=== PATIENT | female | born 1980 | race Caucasian/White ===

== ENCOUNTER → 2017-09-03 | Outpatient (CLI) | payer BC ==
[2016-04-30 11:58] VITALS: BMI 44.8
[~2017-09-03] MED LIST: ALBU8.5H IH; Benzocaine 60 ML TP; DOCU240C67 PO; HYDR-6018 PR; IBUP800T37 PO; LOR5/325 PO; Lanolin TP; OMEG1CAP99 PO; OMEP-218 PO; PREN-127 PO; TUCKS TP
== END ==
LOC: LAB 08:07
PROVIDERS: ATTEND Obstetrics & Gynecology Gynecology
DX: Z32.00 Encounter for pregnancy test, result unknown (principal)
CPT/HCPCS: 36415; 82670; 84144; 84702

== ENCOUNTER → 2017-09-05 | Outpatient (CLI) | payer BC ==
[2016-04-30 11:58] VITALS: BMI 44.8
== END ==
LOC: LAB 08:22
PROVIDERS: ATTEND Physician Assistant
DX: Z32.01 Encounter for pregnancy test, result positive (principal); O09.811 Supervision of pregnancy resulting from assisted reproductive technology, first trimester
CPT/HCPCS: 36415; 84702

== ENCOUNTER → 2017-09-07 | Outpatient (CLI) | payer BC ==
[2016-04-30 11:58] VITALS: BMI 44.8
== END ==
LOC: LAB 08:11
PROVIDERS: ATTEND Physician Assistant
DX: Z32.01 Encounter for pregnancy test, result positive (principal); O09.811 Supervision of pregnancy resulting from assisted reproductive technology, first trimester
CPT/HCPCS: 36415; 84702

== ENCOUNTER → 2017-10-10 | Outpatient (CLI) | payer BC ==
[2016-04-30 11:58] VITALS: BMI 44.8
[~2017-10-10] MED LIST changes: +ASPI-760 PO; +CETI10CA8 PO; +ESTR1PAT4 TD; +FLUT16SP19 NS; +PROG50VI4 IM
[2017-10-10 12:10] LABS: PLATELET COUNT, AUTOMATED 220 K/uL (150-450)
== END ==
LOC: LAB 11:41
PROVIDERS: ATTEND Obstetrics & Gynecology
DX: Z34.91 Encounter for supervision of normal pregnancy, unspecified, first trimester (principal); O09.529 Supervision of elderly multigravida, unspecified trimester
CPT/HCPCS: 36415; 85025; 86592; 86762; 86850; 86900; 86901; 87088; 87340

== ENCOUNTER → 2017-11-04 | Outpatient (CLI) | payer BC ==
[2016-04-30 11:58] VITALS: BMI 44.8
== END ==
LOC: LAB 11:18
PROVIDERS: ATTEND Obstetrics & Gynecology
DX: O09.92 Supervision of high risk pregnancy, unspecified, second trimester (principal); Z87.59 Personal history of other complications of pregnancy, childbirth and the puerperium
CPT/HCPCS: 36415; 82040; 82247; 82310; 82374; 82435; 82565; 82570; 82947; 83615; 84075; 84132; 84155; 84156; 84295; 84450; 84460; 84520

== ENCOUNTER → 2017-11-04 | Outpatient (CLI) | payer BC ==
[2016-04-30 11:58] VITALS: BMI 44.8
== END ==
LOC: RAD 10:30
PROVIDERS: ATTEND Obstetrics & Gynecology
DX: Z02.9 Encounter for administrative examinations, unspecified (principal)

== ENCOUNTER → 2017-11-10 | Outpatient (CLI) | payer BC ==
[2016-04-30 11:58] VITALS: BMI 44.8
[~2017-11-10] MED LIST changes: +AZIT-1 PO
== END ==
LOC: LAB 08:19
PROVIDERS: ATTEND Obstetrics & Gynecology
DX: O09.92 Supervision of high risk pregnancy, unspecified, second trimester (principal); Z87.59 Personal history of other complications of pregnancy, childbirth and the puerperium
CPT/HCPCS: 84156

== ENCOUNTER → 2017-12-06 | Outpatient (CLI) | payer BC ==
[2016-04-30 11:58] VITALS: BMI 44.8
== END ==
LOC: LAB 13:30
PROVIDERS: ATTEND Obstetrics & Gynecology
DX: O09.519 Supervision of elderly primigravida, unspecified trimester (principal)
CPT/HCPCS: 36415; 82105

== ENCOUNTER → 2018-01-05 | Outpatient (CLI) | payer BC ==
[2016-04-30 11:58] VITALS: BMI 44.8
--- NOTE | 2018-01-05 15:19 | RADIOLOGY IMAGING REPORT ---
FACILITY: [facility] - [place] PATIENT NAME: Parul Groves : 1980 MR: [id number] V: [id number] EXAM DATE: ORDERING PHYSICIAN: SHAAN DONIS TECHNOLOGIST: Location: [facility] Patient: Parul Groves : 1980 Visit/Account:[id number] Date of Sevice: 01/05/2018 Obstetric ultrasound HISTORY: . LMP: 08/04/2017 Gestational age based on LMP: 22 weeks, 0 days COMPARISON: 04/29/2016. FINDINGS: Standard transabdominal obstetric ultrasound. Uterus, cervix, and adnexa: Closed cervix measuring 4.5 cm. Placenta: Unremarkable anterior placenta. anatomic survey: No evidence of a midline fascial anomaly. No hydrocephalus. Fluid is seen in t he stomach and bladder. No hydronephrosis. Four-chamber heart. Three-vessel cord. All 4 limbs are see n. The spine and sacrum are not well seen. Parameters: Biparietal diameter: 5.3 cm, 22 weeks, 2 days Head circumference: 20.5 cm, 22 weeks, 5 days Abdominal circumference: 17.4 cm, 22 weeks, 3 days Femur length: 4.0 cm, 23 weeks, 1 day Cerebellum: 2.2 cm, 22 weeks, 1 day Cisterna magna: 5 mm Composite gestational age based on Hadlock criteria is 22 weeks, 5 days for an estimated delivery joseph e of 05/06/2018. Estimated weight is 519 g which is at the 53rd percentile based on LMP. heart rate: 144 bpm. Amniotic fluid index (KRISHNA): 20.1 cm. Largest pocket: 5.4 cm. IMPRESSION: 1. The spine and sacrum are not well seen. The patient will return in one week for follow-up images. 2. Otherwise unremarkable anatomic survey. Report Dictated By: Pablo Vizcarra MD at 01/05/2018 2:58 PM Report E-Signed By: Pablo Vizcarra MD at 01/05/2018 3:16 PM WSN:[id number]
== END ==
LOC: RAD 09:55
PROVIDERS: ATTEND Obstetrics & Gynecology
DX: Z02.9 Encounter for administrative examinations, unspecified (principal)
CPT/HCPCS: 76811

== ENCOUNTER → 2018-01-12 | Outpatient (CLI) | payer BC ==
[2016-04-30 11:58] VITALS: BMI 44.8
== END ==
LOC: RAD 09:25
PROVIDERS: ATTEND Obstetrics & Gynecology
DX: Z02.9 Encounter for administrative examinations, unspecified (principal)
CPT/HCPCS: 76811

== ENCOUNTER → 2018-02-15 | Outpatient (CLI) | payer BC ==
[2016-04-30 11:58] VITALS: BMI 44.8
[~2018-02-15] MED LIST changes: +DIPH0.5D12 IM
[2018-02-15 09:36] LABS: PLATELET COUNT, AUTOMATED 154 K/uL (150-450)
== END ==
LOC: LAB 08:02
PROVIDERS: ATTEND Obstetrics & Gynecology
DX: O09.90 Supervision of high risk pregnancy, unspecified, unspecified trimester (principal)
CPT/HCPCS: 36415; 82950; 85025

== ENCOUNTER → 2018-04-12 | Outpatient (CLI) | payer BC ==
[2016-04-30 11:58] VITALS: BMI 44.8
[~2018-04-12] MED LIST changes: +FLU60SYR36 IM; +VALA500T63 PO
== END ==
LOC: LAB 12:09
PROVIDERS: ATTEND Obstetrics & Gynecology
DX: Z36.85 Encounter for antenatal screening for Streptococcus B (principal); O09.90 Supervision of high risk pregnancy, unspecified, unspecified trimester
CPT/HCPCS: 87081

== ENCOUNTER → 2018-04-20 | Outpatient (CLI) | payer BC ==
[2016-04-30 11:58] VITALS: BMI 44.8
--- NOTE | 2018-04-20 13:02 | RADIOLOGY IMAGING REPORT ---
FACILITY: [facility] - [place] PATIENT NAME: Parul Groves : 1980 MR: [id number] V: [id number] EXAM DATE: ORDERING PHYSICIAN: SHAAN DONIS TECHNOLOGIST: Location: [facility] [place] Patient: Parul Groves : 1980 Visit/Account:[id number] Date of Sevice: 04/20/2018 Limited OB ultrasound Indication: Evaluate growth and fluid Comparison: January 05, 2018. FINDINGS: Intrauterine gestations: one presentation: Vertex heart rate: 140 bpm Amniotic fluid index: 18.4 cm Largest amniotic fluid pocket 5.9 cm Placenta: Anterior without previa Uterus: gravid, otherwise normal Maternal adnexa: Unremarkable Cervix: long and closed Gestational Parameters: BPD: 8.52 cm 34 weeks and 3 days HC: 33.21 cm 38 weeks and 0 days AC: 32.93 cm 36 weeks and 6 days FL: 7.63 cm 39 weeks and 1 day Average ultrasound age (AUA): 37 weeks and 1 day Estimated gestational age based on given LMP datin weeks and 0 days CYNTHIA: 05/10/2018 Estimated weight (EFW): 3143 g +/-459 g EFW for LMP datinnd percentile IMPRESSION: 1. Single live intrauterine gestation; estimated ultrasound age of 37 weeks and 1 day 2. KRISHNA is within normal limits. 3. Estimated weight is at the 62nd percentile Report Dictated By: Timmy Webb MD at 04/20/2018 12:55 PM Report E-Signed By: Timmy Webb MD at 04/20/2018 12:58 PM [email or web address]
== END ==
LOC: US 10:52
PROVIDERS: ATTEND Obstetrics & Gynecology
DX: Z02.9 Encounter for administrative examinations, unspecified (principal)

== ENCOUNTER 2018-05-04 05:05 | Inpatient (IN) | payer BC ==
[2018-04-20 15:42] VITALS: BMI 43.3
--- NOTE | 2018-04-24 15:51 | Anesthesia Progress Note ---
Progress/Maintenance Anesthesia Note Date: Apr 24, 2018 Anesthesia Note Time: 15:45 Pain Intensity: 5 Pump: On Pump Rate (ML/HR): 6 Sensory Level: T-12 Motor Level: Bending Knees-Bilateral Dilatation: 3 Position: Right, Tilt Drug Bolus: 0.2% Ropivicaine, Fentanyl 2mcg/ml, Other (Fentenyl 50 mcgs) Assessment and Plan Assessment Pt. states she is feeling more contraction discomfort on her rt side. Rates the contractions as a "5". Bolus per epidural pump given as well as additional bolus of epidural Fentenyl 50 mcgs. Pt. is working on her phone during contractions and talking easily with family. ERIC CUNNINGHAM CRNA Apr 24, 2018 15:51
[~2018-05-04] VITALS: Ht 172.7 cm; Wt 129.3 kg
[2018-05-04] MEDS: IBUPROFEN 800 MG TAB PO SCH
[~2018-05-04 05:05] MED LIST changes: +GUAI1200 PO
[2018-05-04] MEDS ORDERED: ceFAZolin(*) 2GM/D5W 50ML 50 ML IVPB PRN (05:13)
[2018-05-04] MEDS ORDERED: OXYTOCIN 30 UNIT/D5LR 500 ML 500 ML IV PRN (05:13)
[2018-05-04] MEDS ORDERED: FAMOTIDINE(*) 20MG/50ML PREMIX 50 ML IVPB PRN (05:13)
[2018-05-04] MEDS ORDERED: fentaNYL CITR 100 MCG/2 ML AMP IVP PRN (05:15)
[2018-05-04] MEDS ORDERED: LIDOCAINE/SOD BICARB 8.4% SYR SC PRN (05:15)
[2018-05-04] MEDS ORDERED: METOCLOPRAMIDE 10 MG/2 ML SDV IVP PRN (05:15)
[2018-05-04] MEDS ORDERED: LIDOCAINE 1% LOCAL 300 MG/30ML INJ PRN (05:15)
[2018-05-04] MEDS ORDERED: TERBUTALINE SULF 1 MG/ML VIAL SUBQ PRN (05:15)
[2018-05-04] MEDS ORDERED: LR(*) 1000 ML BAG 1,000 ML ONE (05:32)
[2018-05-04] MEDS ORDERED: OXYTOCIN 30 UNIT/D5LR 500 ML 500 ML ONE (05:33)
[2018-05-04 05:46] VITALS: BP 126/70; Ht 172.7 cm; Wt 129.3 kg
[2018-05-04] MEDS: LR(*) 1000 ML BAG 1,000 ML IV PRN ×3 (05:51→10:47)
[2018-05-04 05:54] LABS: PLATELET COUNT, AUTOMATED 151 K/uL (150-450)
[2018-05-04] MEDS ORDERED: BUPIVACAINE 0.25% MPF INJ EPI PRN (07:20)
[2018-05-04] MEDS ORDERED: BUPIVACAINE 0.5% INJ 30ML VIAL EPI PRN (07:20)
[2018-05-04] MEDS ORDERED: EPIDURAL KEYS XX PRN (07:20)
[2018-05-04] MEDS ORDERED: FENTANYL/ROPIVACAINE 100 ML BAG EPI PRN (07:20)
[2018-05-04] MEDS ORDERED: LIDO/EPI 2% MPF 1:200,000 20ML EPI PRN (07:20)
[2018-05-04] MEDS ORDERED: LIDOCAINE/PF 2% 200MG/10ML AMP 200 MG/10 ML AMPUL EPI PRN (07:20)
[2018-05-04] MEDS ORDERED: fentaNYL CITR 100 MCG/2 ML AMP IT PRN (07:20)
[2018-05-04] MEDS ORDERED: ONDANSETRON 4 MG/2 ML VIAL IVP PRN (07:20)
--- NOTE | 2018-05-04 09:04 | History & Physical ---
History of Present Illness EDC per U/S: May 11, 2018 Estimated Gestational Age: 39.0 Chief Complaint Induction of labor History of Present Illness 37-year-old presents for an induction of labor due to AMA, IVF and history of gestational hypertension with borderline blood pressures. She reports good movement. She is only feeling slight tightening with the current Pitocin regimen. She denies any vaginal bleeding or loss of fluid. care by IMG. 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 GBS negative. History Patient's Blood Type: O Positive Rubella Status: Immune Group B Strep Screen: Negative Obstetrical History: G1: 38wk G2: Current Allergies: Coded Allergies: No Known Drug Allergies (Unverified , 04/29/16) Social History: No T/E/D. . Family History: FH: brain cancer Uncle FH: hypertension MOTHER Maternal Grandfather High cholesterol FATHER Maternal Grandfather Med Rec Home Meds Active Scripts Valacyclovir Hcl (VALACYCLOVIR) 500 Mg Tablet, 500 MG PO BID, #60 TAB 1 Refill Prov:SHAAN DONIS MD 04/12/18 Albuterol Sulfate 90 Mcg/Act (PROAIR HFA 90 MCG/ACT) 8.5 Gm Hfa.aer.ad, 1-2 PUFF IH BID PRN for DYSPNEA, #1 INHALER 11 Refills Prov:ACLEB LAI DO 11/10/17 Reported Medications Guaifenesin (MUCINEX) 1,200 Mg Tbmp.12hr, 1200 MG PO 04/28/18 Cetirizine Hcl (ZYRTEC) 10 Mg Capsule, 10 MG PO QDAY, CAPSULE 10/10/17 [place]-3/Dha/Epa/Fish Oil ([place] 3 500 Softgel) 500 Mg (200 Mg-300 Mg)-1,000 Mg Capsule, 1 CAP PO DAILY 05/02/16 Omeprazole Magnesium (PRILOSEC OTC) 20 Mg Tablet.dr, 1 TAB PO BID, TAB 05/02/16 Vits W-Ca,Fe,Fa(<1MG) ( VITAMINS) 1 Each Tablet, 1 EACH PO DAILY, TAB 05/02/16 Review of Systems Constitutional: No Fever Neurological: No Syncope Eyes: No Vision Change Cardiovascular: No Chest Pain Respiratory: No Shortness of Breath Gastrointestinal: No Nausea, No Vomiting, No Diarrhea Genitourinary: No Dysuria Musculoskeletal: No Pain Psychiatric: No Depression, No Anxiety Exam General Exam Vital Signs Vital Signs Date Time Temp Pulse Resp B/P (MAP) Pulse Ox O2 Delivery O2 Flow Rate FiO2 05/04/18 05:46 97.9 78 14 126/70 (88) 93 General Apperance: Alert/Awake/No Acute Distress Neuro: No Gross deficits Eyes: Normal Extraocular Movement & Vison Cardiovascular: Regular Rate and Rhythm Respiratory: No Respiratory Distress, Clear to Auscultation Abdomen: Gravid - Non-Tender : Normal Musculoskeletal: No Weakness/Pain Extremities: No Cyanosis,Clubbing or Edema Integumentary: Skin Intact without Lesions or Rash Psychological: Alert & Oriented X3, Appropriate Mood & Affect Vaginal Discharge/Fluid?: Clear Fluid Cervical Dialation: 4 Cervical Effacement (%): 60 Cervical Consistency: Soft Cervical Position: Anterior Station: -2 Presentation: Vertex Uterine Contractions(Q min): 10 Uterine Contraction Strength: Mild Fetus Feeling Movement?: Yes FHT Category: I Medical Decision Making Data Points Result Diagram: 05/04/18 0545 Pre-Admit Course Medical Record Review: Yes VTE Prophylasis: Adult Deep Vein Thrombosis/Pulmonary: No Pharmacological Contraindicati: Surgical Contraindication Mechanical Contraindications: Surgical Contraindication Assessment and Plan Problems: (1) AMA (advanced maternal age) multigravida 35+ Assessment & Plan: 37-year-old presents for an induction of labor due to AMA, IVF and history of gestational hypertension with borderline blood pressures. Pitocin protocol. AROM with clear fluid performed. GBS negative. Plans for epidural. (2) resulting from in vitro fertilization Assessment & Plan: As above. (3) 39 weeks gestation of Problem Qualifiers (1) AMA (advanced maternal age) multigravida 35+: Trimester: third trimester Qualified Codes: O09.523 - Supervision of elderly multigravida, third trimester (2) resulting from in vitro fertilization: Trimester: third trimester Qualified Codes: O09.813 - Supervision of resulting from assisted reproductive technology, third trimester SHAAN DONIS MD May 04, 2018 09:04
[2018-05-04] MEDS ORDERED: PHENYLEPHRINE/NS/PF 0.4MG/10ML ONE (10:02)
--- NOTE | 2018-05-04 10:10 | Anesthesia OB Pre-Anes Eval ---
History of Present Illness Anesthesia Start Date: May 04, 2018 Anesthesia Start Time: 09:07 OB Anesthesia Diagnosis: induction - medical Current Complication: obesity EDC: May 11, 2018 : 2 Para: 1 Vital Signs: Vital Signs 05/04/18 05:46 Temp 97.9 Pulse 78 Resp 14 B/P (MAP) 126/70 (88) Pulse Ox 93 Pain Ratin Result Diagram: 05/04/18 0545 Height (Inches): 68.00 Weight (Pounds): 285 BMI Calculated: 43.33 Past Medical History Medical History: obesity, asthma Surgical History: other (Epidural) Previous Anesthesia: epidural Attended Childbirth Classes?: No Hx Anesthesia Reactions: No Hx Family Anesthesia Reaction: No Home Meds Active Scripts Valacyclovir Hcl (VALACYCLOVIR) 500 Mg Tablet, 500 MG PO BID, #60 TAB 1 Refill Prov:SHAAN DONIS MD 04/12/18 Albuterol Sulfate 90 Mcg/Act (PROAIR HFA 90 MCG/ACT) 8.5 Gm Hfa.aer.ad, 1-2 PUFF IH BID PRN for DYSPNEA, #1 INHALER 11 Refills Prov:CALEB LAI DO 11/10/17 Reported Medications Guaifenesin (MUCINEX) 1,200 Mg Tbmp.12hr, 1200 MG PO 04/28/18 Cetirizine Hcl (ZYRTEC) 10 Mg Capsule, 10 MG PO QDAY, CAPSULE 10/10/17 [place]-3/Dha/Epa/Fish Oil ([place] 3 500 Softgel) 500 Mg (200 Mg-300 Mg)-1,000 Mg Capsule, 1 CAP PO DAILY 05/02/16 Omeprazole Magnesium (PRILOSEC OTC) 20 Mg Tablet.dr, 1 TAB PO BID, TAB 05/02/16 Vits W-Ca,Fe,Fa(<1MG) ( VITAMINS) 1 Each Tablet, 1 EACH PO DAILY, TAB 05/02/16 Allergies: Coded Allergies: No Known Drug Allergies (Unverified , 04/29/16) Anesthesia OB ROS Neurological: No migraines/headaches, No seizures, No neuropathy, No other ENT: Denies Tooth caps, Denies Loose teeth, Denies Chipped teeth, Denies Dentures, Denies Bridges, Denies Retainers, Denies Veneers, Denies Implants, Denies Tongue ring, Denies Other Pulmonary: asthma Airway Class: lll Cardiovascular ROS: No edema, No arrhythmia, No other GI ROS: clear liquids Last Solids Date: May 03, 2018 Last Solids Time: 19:00 ROS: No Herpes, No STD(s), No Liver Disease, No Renal Disease, No Other Endocrine ROS: other (obese) Musculoskeletal ROS: No low back pain, No low back injury, No scoliosis, No oth er ASA Classification: 3 Assessment and Plan Anesthesia Plan: CHARISSE ZIEGLER CRNA May 04, 2018 10:10
--- NOTE | 2018-05-04 10:21 | Procedure Note ---
Anesthetic Placement Note Anesthesia Plan: CSE Permit for Anesthesia Signed: Yes Anesthesia Technique: Patient Sitting Anesthesia Prep: Chlorhexidine Interspace: L 2-3 Local Anesthetic: 1% Lidocaine Amount Local - cc's: 3 Anesthesia Needle: 17g Touhy/Schliff Anesthesia Attempts: 1 Loss of Resistance: Normal Saline Depth of JENNY (cm): 4.5 Epidural Needle Placement: No CSF, No Blood, No Parasthesia Intrathecal Needle: 27 Gauge Pencan Cerebral Spinal Fluid: Yes, Clear Catheter Insertion (cm): 4 Catheter Type: Marquez - Spring Wound Epidural Dressing: Tegaderm, Tape Anesthesia Tray: Lot Number ([id number]), Expiration Date (03/08), Reference Number ([id number]) Anesthesia Medications: Intrathecal Dose: mcg Fentanyl (10), mg Marcaine MPF (2.5), Time (0926) Epidural Test Dose: 1.5 Lido/Epi (1:200,000), Dose - mL (3), Time (0930), Negative Epidural Infusion: 0.2% Ropivicaine, With Fentanyl 2mcg/ml, Start Time: (0950) Epidural Pump Setting: Bolus Dose - mL (8), Lockout - Minutes (6), Maintenance Rate - mL/hr (6), Maximum per Hour - mL (30) Complications: None CHARISSE ARCEO CRNA May 04, 2018 10:21
--- NOTE | 2018-05-04 13:09 | Labor Progress Note ---
Labor Subjective Progress Notes Subjective Patient is comfortable with epidural. No concerns. Labor Objective Vital Signs Vital Signs Date Time Temp Pulse Resp B/P (MAP) Pulse Ox O2 Delivery O2 Flow Rate FiO2 05/04/18 05:46 97.9 78 14 126/70 (88) 93 Vaginal Discharge/Fluid?: Clear Fluid Cervical Dialation: 5 Cervical Effacement (%): 90 Cervical Consistency: Soft Cervical Position: Mid Station: 0 Presentation: Vertex Uterine Contractions(Q min): 2 Fetus FHT Category: I General Exam General Appearance: Alert/Awake/No Acute Distress Extremities: No Cyanosis,Clubbing or Edema Integumentary: Skin Intact without Lesions or Rash Psychological: Alert & Oriented X3, Appropriate Mood & Affect Other Result Diagram: 05/04/18 0545 Assessment and Plan Problems: (1) AMA (advanced maternal age) multigravida 35+ Assessment & Plan: 37-year-old presents for an induction of labor due to AMA, IVF and history of gestational hypertension with borderline blood pressures. Progressing well. Continue pitocin. Anticipate . (2) resulting from in vitro fertilization Assessment & Plan: As above. (3) 39 weeks gestation of Problem Qualifiers (1) AMA (advanced maternal age) multigravida 35+: Trimester: third trimester Qualified Codes: O09.523 - Supervision of elderly multigravida, third trimester (2) resulting from in vitro fertilization: Trimester: third trimester Qualified Codes: O09.813 - Supervision of resulting from assisted reproductive technology, third trimester SHAAN DONIS MD May 04, 2018 13:09
[2018-05-04] MEDS ORDERED: CARBOPROST TROMETHAM 250MCG/ML IM ONLY ONE (13:56)
[2018-05-04] MEDS ORDERED: METHYLERGONOVINE MAL 0.2MG/ML ONE (13:56)
[2018-05-04] MEDS ORDERED: MAGNESIUM HYDROXIDE* 30ML UDCP PO PRN (14:30)
[2018-05-04] MEDS ORDERED: GLYCERIN/WITCH HAZEL LEAF 1 PK TP PRN (14:30)
[2018-05-04] MEDS ORDERED: BENZOCAINE 20% 60 ML BTL TP PRN (14:30)
[2018-05-04] MEDS ORDERED: LANOLIN OINT 7 GM TUBE TP PRN (14:30)
[2018-05-04] MEDS ORDERED: ACETAMINOPHEN 325 MG TAB PO PRN (14:30)
[2018-05-04] MEDS ORDERED: HYDROCORTISONE 2.5% CR 30GM TB PR PRN (14:30)
--- NOTE | 2018-05-04 14:47 | Anesthesia Progress Note ---
Progress/Maintenance Anesthesia Note Date: May 04, 2018 Anesthesia Note Time: 13:00 Pain Intensity: 0 Pump: On Pump Rate (ML/HR): 6 Motor Level: Bending Knees-Bilateral Dilatation: 6 Position: Right Assessment and Plan Anesthesia Plan: CSE Anesthesia Stop Day: May 04, 2018 Anesthesia Stop Time: 15:30 CHARISSE ARCEO CRNA May 04, 2018 14:47
[2018-05-04 16:07] VITALS: BP 133/76
[2018-05-04] MEDS ORDERED: IBUPROFEN 800 MG TAB PO SCH (17:00)
[2018-05-04 17:57] VITALS: BP 133/61
[2018-05-04] MEDS: APAP/HYDROCODONE 325/5 TAB PO PRN (18:05)
--- NOTE | 2018-05-04 19:37 | OB Delivery Note ---
Delivery Note Vaginal Delivery Type: Spont. Vaginal Delivery Delivery Date: May 04, 2018 Delivery Time: 14:13 Estimated Gestational Age(wks): 39.0 Length of Labor Stage II (hrs): 0.5 Labor Stage III (minutes): 8 Delivery Anesthesia: Epidural Sex: Female Infant Weight (gms): 3230 [address] Apgars: 1 Minute (8), 5 Minute (9) Repair Needed: 1st Degree Estimated Blood Loss: 200 Reproduction Specialist in Attendence: SHAAN Zhu MD May 04, 2018 19:37
[2018-05-04] MEDS ORDERED: IBUP800T37 PO (19:42)
[2018-05-04] MEDS ORDERED: LOR5/325 PO (19:42)
[2018-05-04 20:26] VITALS: BP 105/53
[2018-05-04] MEDS: DOCUSATE CALCIUM 240 MG CAP PO SCH (21:00)
[2018-05-05 00:40] VITALS: BP 117/68
--- NOTE | 2018-05-05 01:36 | DELIVERY NOTE ---
DELIVERY DATE: May 04, 2018 SURGEON: Lisa Whitaker MD ANESTHESIA: Epidural by Maritza Ramsay CRNA PREOPERATIVE DIAGNOSIS Intrauterine at 39 weeks and 0 days, presenting for induction of labor due to advanced maternal age. POSTOPERATIVE DIAGNOSES 1. Intrauterine at 39 weeks and 0 days, presenting for induction of labor due to advanced maternal age. 2. Delivery of a viable female at 1413 hours weighing 3230 g, with scores of 8 at one minute and 9 at five minutes. PROCEDURE Spontaneous vaginal delivery. INDICATIONS This patient is a 37-year-old 2, para 1, who presented at 39 weeks and 0 days for an induction of labor due to advanced maternal age. She was admitted at 3 cm dilated, 50% effaced, and -2 station. She was allowed to progress with Pitocin per protocol. An amniotomy was performed with return of clear fluid, at which time she was 4 cm dilated, 60% effaced, -2 station. She then received an epidural for anesthesia. She then progressed to complete and was allowed to start pushing, bringing the 's vertex to the perineum. PROCEDURE The patient was noted to be complete and pushing. She was in the dorsal lithotomy position. She was able to deliver the 's vertex spontaneously in the ETIENNE position over an intact perineum. A nuchal cord was checked but not noted. The anterior shoulder delivered easily, followed by the posterior shoulder. The remainder of the was then easily delivered. After approximately two minutes, the cord was clamped x2 and cut by the father of the baby. Cord blood was then obtained and passed off the table. Pitocin was started through the IV fluid to help firm the uterus. Examination of the vaginal vault and perineum revealed a first-degree perineal laceration, which was repaired using a 4-0 Vicryl in a [id number] suture. Hemostasis was assured. The placenta then delivered spontaneously and was passed off the table. Examination of the cervix and vaginal vault again did not reveal any further lacerations. The patient tolerated this procedure well and recovered in Labor and Delivery without event. TOÑO
[2018-05-05 05:09] VITALS: BP 117/63
[2018-05-05] MEDS: IBUPROFEN 800 MG TAB PO SCH ×2 (07:03→14:52)
[2018-05-05] MEDS: APAP/HYDROCODONE 325/5 TAB PO PRN ×3 (07:03→13:28)
[2018-05-05 07:25] VITALS: BP 124/78
--- NOTE | 2018-05-05 07:42 | OB/GYN Progress Note ---
OB Subjective Progress Notes Subjective Doing well. Pain controlled with oral medications. Tolerating regular diet. Ambulating. Voiding. Normal lochia. No preeclampsia symptoms. OB Objective Physical Exam Vital Signs Date Time Temp Pulse Resp B/P (MAP) Pulse Ox O2 Delivery O2 Flow Rate FiO2 05/05/18 05:09 98.1 61 14 117/63 (81) 92 Room Air 05/04/18 16:07 94.0 Intake and Output 05/05/18 06:59 Intake Total 3225 ml Output Total 1300 ml Balance 1925 ml Intake IV Total 3225 ml Output Urine Total 1300 ml # Voids 1 General Appearance: Alert/Awake/No Acute Distress Neurological: No Gross deficits Eyes: Normal Extraocular Movement & Vison Cardiovascular: Normal Rhythm & Peripheral Pulses, Regular Rate and Rhythm Respiratory: No Respiratory Distress, Clear to Auscultation Abdomen: Soft, Non-Tender, Non-Distended, Fundus Firm Extremities: No Cyanosis,Clubbing or Edema Integumentary: Skin Intact without Lesions or Rash Psychological: Alert & Oriented X3, Appropriate Mood & Affect Result Diagram: 05/04/18 0545 Assessment and Plan Problems: (1) care and examination immediately after delivery Status: Acute Assessment & Plan: PPD#1. Meeting milestones. Desires discharge to home today. Discussed routine expectations. Questions answered. Follow up in clinic in 3wks for check. (2) 39 weeks gestation of SHAAN DONIS MD May 05, 2018 07:42
--- NOTE | 2018-05-05 07:43 | OB/GYN Discharge Summary ---
Discharge Summary Reason for Hosp/Final Diag: (1) care and examination immediately after delivery Status: Acute Hospital Course & Plan: PPD#1. Meeting milestones. Desires discharge to home today. Discussed routine expectations. Questions answered. Follow up in clinic in 3wks for check. (2) 39 weeks gestation of [place] Vital Signs Vital Signs Date Time Temp Pulse Resp B/P (MAP) Pulse Ox O2 Delivery O2 Flow Rate FiO2 05/05/18 05:09 98.1 61 14 117/63 (81) 92 Room Air 05/04/18 16:07 94.0 Weight (Pounds): 285 Result Diagram: 05/04/18 0545 Condition: Improved Discharge: Home, Self Assisted Meds Active Scripts Hydrocodone Bit/Acetaminophen (HYDROCODON-ACETAMINOPHEN 5-325) 1 Each Tablet, 1 EACH PO Q4-6H PRN for pain, #15 TAB 0 Refills Prov:SHAAN DONIS MD 05/04/18 Valacyclovir Hcl (VALACYCLOVIR) 500 Mg Tablet, 500 MG PO BID, #60 TAB 1 Refill Prov:SHAAN DONIS MD 04/12/18 Albuterol Sulfate 90 Mcg/Act (PROAIR HFA 90 MCG/ACT) 8.5 Gm Hfa.aer.ad, 1-2 PUFF IH BID PRN for DYSPNEA, #1 INHALER 11 Refills Prov:CALEB LAI DO 11/10/17 Reported Medications Guaifenesin (MUCINEX) 1,200 Mg Tbmp.12hr, 1200 MG PO 04/28/18 Cetirizine Hcl (ZYRTEC) 10 Mg Capsule, 10 MG PO QDAY, CAPSULE 10/10/17 [place]-3/Dha/Epa/Fish Oil ([place] 3 500 Softgel) 500 Mg (200 Mg-300 Mg)-1,000 Mg Capsule, 1 CAP PO DAILY 05/02/16 Omeprazole Magnesium (PRILOSEC OTC) 20 Mg Tablet.dr, 1 TAB PO BID, TAB 05/02/16 Vits W-Ca,Fe,Fa(<1MG) ( VITAMINS) 1 Each Tablet, 1 EACH PO DAILY, TAB 05/02/16 Follow up Referrals: [facility] MACHINE SET UP OPERATOR - [facility] @ [facility] with SHAAN DONIS MD Discharge Diet: As Tolerates Discharge Activity: Pelvic Rest SHAAN DONIS MD May 05, 2018 07:43
[2018-05-05] MEDS ORDERED: MEASLES,MUMP,RUBELLA VAC 0.5ML SUBQ ONE (09:00)
[2018-05-05] MEDS ORDERED: ENOXAPARIN 40 MG/0.4ML SYR SC SCH (09:00)
[2018-05-05] MEDS ORDERED: INFLUENZA VIRUS VAC 0.5ML SYR IM ONLY ONE (09:00)
[2018-05-05] MEDS ORDERED: DIPHTH/TETANUS/ACEL. PERTUSSIS IM ONLY ONE (09:00)
[2018-05-05] MEDS: DOCUSATE CALCIUM 240 MG CAP PO SCH (09:32)
--- NOTE | 2018-05-05 10:17 | Anesthesia Post Eval Note ---
Anesthesia Post Eval Note Vital Signs 05/04/18 05/05/18 16:07 07:25 Temp 97.7 Pulse 62 Resp 16 B/P (MAP) 124/78 (93) Pulse Ox 94 O2 Delivery Room Air O2 Flow Rate 94.0 Pt able to participate in Eval: Yes Cardiovascular Status: Satisfactory Respiratory Status: Satisfactory Pain Managment: Satisfactory PO Nausea/Vomiting: Satisfactory Temperature Management: Satisfactory Mental Status: Satisfactory, Alert, Oriented X3 Post-Op Hydration Status: Satisfactory, Tolerating PO Well, Voiding w/o Difficulty Anesthesia Type: CHARISSE ZIEGLER CRNA May 05, 2018 10:17
[2018-05-05 10:55] VITALS: BP 129/58
== END 2018-05-05 15:12 | disposition home or self-care (01) | DRG 806 ==
LOC: OB 05:05
PROVIDERS: ADMIT Obstetrics & Gynecology; ATTEND Obstetrics & Gynecology
PROC: 10E0XZZ Delivery of Products of Conception, External Approach (ICD-10-PCS; principal; 2018-05-04)
PROC: 10907ZC Drainage of Amniotic Fluid, Therapeutic from Products of Conception, Via Natural or Artificial Opening (ICD-10-PCS; 2018-05-04)
PROC: 0HQ9XZZ Repair Perineum Skin, External Approach (ICD-10-PCS; 2018-05-04)
PROC: 3E033VJ Introduction of Other Hormone into Peripheral Vein, Percutaneous Approach (ICD-10-PCS; 2018-05-04)
DX: O99.214 Obesity complicating childbirth (principal); Z68.41 Body mass index [BMI] 40.0-44.9, adult; Z37.0 Single live birth; O70.0 First degree perineal laceration during delivery; Z3A.39 39 weeks gestation of pregnancy; Z23 Encounter for immunization; E66.9 Obesity, unspecified
CPT/HCPCS: 36415; 85025; 86703; 86850; 86900; 86901; 90707; J1650; J2370; J2405; J2590; J3010; J7120; S0020

== ENCOUNTER 2018-05-14 07:21 | Emergency (ER) | payer BC ==
[2018-05-04 05:46] VITALS: Wt 129.3 kg
--- NOTE | 2018-05-14 07:25 | ER Report ---
History and Physical Time Seen By MD: 07:25 HPI/ROS CHIEF COMPLAINT: Abdominal pain HISTORY OF PRESENT ILLNESS: Patient is a presents to the emergency department with complaint of abdominal pain. Patient is from 39 week gestation as of May 04. 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 He was group B strep negative. Blood type is O+ prior was a spontaneous vaginal delivery at 38 weeks. She states that last evening around 8 PM she began with generalized abdominal pain. She reports that she is still having some vaginal bleeding which she states is now worse and passing some clots. She denies any dysuria. Bowel movements are normal. She does report nausea without vomiting. She denies any fevers or chills. REVIEW OF SYSTEMS: Constitutional: No fever, no chills. Eyes: No discharge. ENT: No sore throat. Cardiovascular: No chest pain, no palpitations. Respiratory: No cough, no shortness of breath. Gastrointestinal: The last abdominal pain with nausea Genitourinary: No hematuria. Vaginal bleeding Musculoskeletal: No back pain. Skin: No rashes. Neurological: No headache. Allergies: Coded Allergies: No Known Drug Allergies (Unverified , 04/29/16) Home Meds Active Scripts Oxycodone Hcl/Acetaminophen (PERCOCET 5-325 MG TABLET) 1 Each Tablet, 1 EACH PO Q4H for PAIN, #20 TAB 0 Refills Prov:DELFINA LIM MD 05/14/18 Amoxicillin/Pot Clav 875-125 Mg Tab (AUGMENTIN 875-125 TABLET) 1 Each Tablet, 1 TAB PO Q12H, #20 TAB 0 Refills Prov:DELFINA LIM MD 05/14/18 Hydrocodone Bit/Acetaminophen (HYDROCODON-ACETAMINOPHEN 5-325) 1 Each Tablet, 1 EACH PO Q4-6H PRN for pain, #15 TAB 0 Refills Prov:SHAAN WHITAKER MD 05/04/18 Ibuprofen (IBUPROFEN) 800 Mg Tablet, 1 TAB PO Q8H PRN for pain, #30 TAB 0 Refills TAKE WITH FOOD EVERY 8 HOURS Prov:SHAAN WHITAKER MD 05/04/18 Albuterol Sulfate 90 Mcg/Act (PROAIR HFA 90 MCG/ACT) 8.5 Gm Hfa.aer.ad, 1-2 PUFF IH BID PRN for DYSPNEA, #1 INHALER 11 Refills Prov:CALEB LAI DO 11/10/17 Reported Medications Guaifenesin (MUCINEX) 1,200 Mg Tbmp.12hr, 1200 MG PO 04/28/18 Cetirizine Hcl (ZYRTEC) 10 Mg Capsule, 10 MG PO QDAY, CAPSULE 10/10/17 [place]-3/Dha/Epa/Fish Oil ([place] 3 500 Softgel) 500 Mg (200 Mg-300 Mg)-1,000 Mg Capsule, 1 CAP PO DAILY 05/02/16 Omeprazole Magnesium (PRILOSEC OTC) 20 Mg Tablet.dr, 1 TAB PO BID, TAB 05/02/16 Vits W-Ca,Fe,Fa(<1MG) ( VITAMINS) 1 Each Tablet, 1 EACH PO DAILY, TAB 05/02/16 Past Medical/Surgical History Recent delivery on 05/04/2018 Hx Smoking: No Smoking Status: Never Smoker Exposure to Second Hand Smoke?: No Constitutional Vital Sign - Last 24 Hours 05/14/18 05/14/18 05/14/18 05/14/18 07:21 07:27 07:29 07:51 Temp 99.6 Pulse ??? 97 89 Resp 16 B/P (MAP) 140/88 140/88 (105) Pulse Ox 94 93 O2 Delivery Room Air 05/14/18 05/14/18 05/14/18 05/14/18 08:00 08:21 08:30 09:00 Pulse 78 B/P (MAP) 129/71 (90) 115/77 (90) 120/75 (90) Pulse Ox 99 05/14/18 05/14/18 05/14/18 09:30 10:00 10:30 Pulse 70 79 B/P (MAP) 118/76 (90) 125/77 (93) Pulse Ox 100 99 Physical Exam General/Constitutional: Patient is awake, alert, nontoxic and in no acute respiratory distress. Head: Normocephalic and atraumatic. Eyes: Conjunctival clear, Pupils are equal and reactive to light. Extraocular muscles are intact and symmetrical. Sclera are clear and anicteric. Ears:External canals are clear. Tympanic membranes are clear with normal landmarks and light reflex. Nares: No rhinorrhea or bleeding. Turbinates are pink and moist. Oropharyngeal: Mucous membranes are moist. There is no pharyngeal erythema or exudate. There are no palatal petechiae. Uvula is midline and symmetrical. Neck: Supple, no adenopathy. Cardiovascular: Heart is regular rate and rhythm without audible murmurs, rubs or gallops. Pulmonary: Lungs are clear to auscultation bilaterally. There are no wheezes, rales, or rhonchi. Chest rise is symmetrical Abdomen: Soft, mild diffuse tenderness without guarding or rebound tenderness Extremities: No gross deformities, No peripheral cyanosis. Able to move all 4 extremities. Neuro: Alert and oriented X3, Skin: No rashes, skin is warm dry and well perfused. Medical Decision Making Data Points Result Diagram: 05/14/18 0725 05/14/18 0725 Laboratory Hematology Test 05/14/18 07:25 Red Blood Count 4.66 M/uL (4.17-5.56) Mean Corpuscular Volume 92.1 fL (80.0-96.0) Mean Corpuscular Hemoglobin 31.8 pg (26.0-33.0) Mean Corpuscular Hemoglobin Concent 34.5 g/dL (32.0-36.0) Red Cell Distribution Width 13.7 % (11.5-14.5) Mean Platelet Volume 8.0 fL (7.2-11.1) Neutrophils (%) (Auto) 83.4 % (39.4-72.5) Lymphocytes (%) (Auto) 6.3 % (17.6-49.6) Monocytes (%) (Auto) 9.1 % (4.1-12.4) Eosinophils (%) (Auto) 0.6 % (0.4-6.7) Basophils (%) (Auto) 0.6 % (0.3-1.4) Nucleated RBC Relative Count (auto) 0.1 /100WBC Neutrophils # (Auto) 7.9 K/uL (2.0-7.4) Lymphocytes # (Auto) 0.6 K/uL (1.3-3.6) Monocytes # (Auto) 0.9 K/uL (0.3-1.0) Eosinophils # (Auto) 0.1 K/uL (0.0-0.5) Basophils # (Auto) 0.1 K/uL (0.0-0.1) Nucleated RBC Absolute Count (auto) 0.01 K/uL Urine Color Red Urine Clarity Cloudy Urine pH 6.0 pH (4.8-9.5) Urine Specific [place] 1.010 Urine Protein 100 mg/dL (NEGATIVE) Urine Glucose (UA) Negative mg/dL (NEGATIVE) Urine Ketones Negative mg/dL (NEGATIVE) Urine Blood Large (NEGATIVE) Urine Nitrite Negative (NEGATIVE) Urine Bilirubin Negative (NEGATIVE) Urine Urobilinogen Negative mg/dL (0.2-1.9) Urine Leukocyte Esterase Large (NEGATIVE) Urine RBC 1278 /HPF (0-2/HPF) Urine WBC 237 /HPF (0-5/HPF) Urine Squamous Epithelial Cells Many /LPF (</=FEW) Urine Bacteria Few /HPF (NONE-FEW) Urine Mucus Few /HPF (NONE-FEW) Sodium Level 137 mmol/L (137-145) Potassium Level 3.8 mmol/L (3.5-5.0) Chloride Level 104 mmol/L (98-107) Carbon Dioxide Level 21 mmol/L (22-31) Blood Urea Nitrogen 12 mg/dl (7-18) Creatinine 0.70 mg/dl (0.52-1.04) Glomerular Filtration Rate Calc > 60.0 Random Glucose 88 mg/dl (75-110) Calcium Level 9.1 mg/dl (8.4-10.2) Total Bilirubin 1.0 mg/dl (0.2-1.3) Aspartate Amino Transf (AST/SGOT) 33 U/L (0-35) Alanine Aminotransferase (ALT/SGPT) 46 U/L (0-56) Alkaline Phosphatase 86 U/L (0-126) Total Protein 7.2 g/dl (6.3-8.2) Albumin 3.8 g/dl (3.5-5.0) Lipase 27 U/L (23-300) Human Chorionic Gonadotropin, Qual Negative (NEGATIVE) Human Chorionic Gonadotropin, Quant 11 mIU/ml Helicobacter pylori IgG Antibody Negative (NEGATIVE) Chemistry Test 05/14/18 07:25 White Blood Count 9.4 k/uL (4.5-11.0) Red Blood Count 4.66 M/uL (4.17-5.56) Hemoglobin 14.8 g/dL (12.0-16.0) Hematocrit 42.9 % (34.0-47.0) Mean Corpuscular Volume 92.1 fL (80.0-96.0) Mean Corpuscular Hemoglobin 31.8 pg (26.0-33.0) Mean Corpuscular Hemoglobin Concent 34.5 g/dL (32.0-36.0) Red Cell Distribution Width 13.7 % (11.5-14.5) Platelet Count 178 K/uL (150-450) Mean Platelet Volume 8.0 fL (7.2-11.1) Neutrophils (%) (Auto) 83.4 % (39.4-72.5) Lymphocytes (%) (Auto) 6.3 % (17.6-49.6) Monocytes (%) (Auto) 9.1 % (4.1-12.4) Eosinophils (%) (Auto) 0.6 % (0.4-6.7) Basophils (%) (Auto) 0.6 % (0.3-1.4) Nucleated RBC Relative Count (auto) 0.1 /100WBC Neutrophils # (Auto) 7.9 K/uL (2.0-7.4) Lymphocytes # (Auto) 0.6 K/uL (1.3-3.6) Monocytes # (Auto) 0.9 K/uL (0.3-1.0) Eosinophils # (Auto) 0.1 K/uL (0.0-0.5) Basophils # (Auto) 0.1 K/uL (0.0-0.1) Nucleated RBC Absolute Count (auto) 0.01 K/uL Urine Color Red Urine Clarity Cloudy Urine pH 6.0 pH (4.8-9.5) Urine Specific [place] 1.010 Urine Protein 100 mg/dL (NEGATIVE) Urine Glucose (UA) Negative mg/dL (NEGATIVE) Urine Ketones Negative mg/dL (NEGATIVE) Urine Blood Large (NEGATIVE) Urine Nitrite Negative (NEGATIVE) Urine Bilirubin Negative (NEGATIVE) Urine Urobilinogen Negative mg/dL (0.2-1.9) Urine Leukocyte Esterase Large (NEGATIVE) Urine RBC 1278 /HPF (0-2/HPF) Urine WBC 237 /HPF (0-5/HPF) Urine Squamous Epithelial Cells Many /LPF (</=FEW) Urine Bacteria Few /HPF (NONE-FEW) Urine Mucus Few /HPF (NONE-FEW) Glomerular Filtration Rate Calc > 60.0 Calcium Level 9.1 mg/dl (8.4-10.2) Total Bilirubin 1.0 mg/dl (0.2-1.3) Aspartate Amino Transf (AST/SGOT) 33 U/L (0-35) Alanine Aminotransferase (ALT/SGPT) 46 U/L (0-56) Alkaline Phosphatase 86 U/L (0-126) Total Protein 7.2 g/dl (6.3-8.2) Albumin 3.8 g/dl (3.5-5.0) Lipase 27 U/L (23-300) Human Chorionic Gonadotropin, Qual Negative (NEGATIVE) Human Chorionic Gonadotropin, Quant 11 mIU/ml Helicobacter pylori IgG Antibody Negative (NEGATIVE) Urinalysis Test 05/14/18 07:25 Urine Color Red Urine Clarity Cloudy Urine pH 6.0 pH (4.8-9.5) Urine Specific [place] 1.010 Urine Protein 100 mg/dL (NEGATIVE) Urine Glucose (UA) Negative mg/dL (NEGATIVE) Urine Ketones Negative mg/dL (NEGATIVE) Urine Blood Large (NEGATIVE) Urine Nitrite Negative (NEGATIVE) Urine Bilirubin Negative (NEGATIVE) Urine Urobilinogen Negative mg/dL (0.2-1.9) Urine Leukocyte Esterase Large (NEGATIVE) Urine RBC 1278 /HPF (0-2/HPF) Urine WBC 237 /HPF (0-5/HPF) Urine Squamous Epithelial Cells Many /LPF (</=FEW) Urine Bacteria Few /HPF (NONE-FEW) Urine Mucus Few /HPF (NONE-FEW) EKG/Im[place] [facility] [place] NAME: Parul Groves : 1980 MR: [id number] V: [id number] EXAM DATE: ORDERING PHYSICIAN: DELFINA LIM TECHNOLOGIST: Location: [facility] - [place] Patient: Parul Groves : 1980 Visit/Account:[id number] Date of Sevice: 05/14/2018 EXAMINATION: Transabdominal and transvaginal pelvic ultrasound with duplex Doppler evaluation HISTORY: Vaginal bleeding x10 days. Delivered 05/04/2018; COMPARISON: None. FINDINGS: Uterus: 15 cm length x 10 cm transverse x 7.5 cm AP. Myometrium: Negative. Endometrium: Fluid and debris is present within the endometrial cavity. There does appear to be some minor thickening along the anterior and right lateral endometrium with some minimal vascularity. It is unclear whether this represents retained products but would be a differential consideration., . Cervix: Negative. Ovaries: Right ovary 2.9 x 2 x 3.4 cm, no mass or cyst. Left ovary 4.3 x 3.8 x 2.1 cm, no mass or cyst. Blood flow is documented in each ovary by Doppler ultrasound. Free pelvic fluid: None. Pelvic vessels: Normal Bladder: Empty IMPRESSION: 1. Fluid and debris in the endometrial cavity. There appears to be some residual endometrial irregularity and thickening along the anterior and right lateral aspect of the endometrial cavity although with minimal vascularity, findings may be indicative of retained products. 2. No adnexal masses. Report Dictated By: Giuliana Poon MD at 05/14/2018 10:46 AM Report E-Signed By: Giuliana Poon MD at 05/14/2018 10:53 AM WSN:[id number] ED Course/Re-evaluation ED Course 05/14/2018 7:52:50 am patient with spontaneous vaginal delivery on 05/04/2018. Differential diagnosis includes gastroenteritis, cholecystitis, appendicitis, retained products of conception, urinary tract infection. Plan at this time will be to obtain blood work for labs we will obtain urine and quantitative will also obtain a pelvic ultrasound. 05/14/2018 11:20:49 am patient still some discomfort ultrasound is consistent with some fluid and material in the endocervical canal which could be retained products we'll call OB for evaluation 05/14/2018 11:30:[address] Schmitt who was on for [employer], history physical exam all pertinent lab data and ultrasound findings (including possible retained products of conception) were discussed. Given that the patient is afebrile and without a white count he recommends placing the patient on A ugmentin as she is breast-feeding and have her follow up with Dr. Whitaker early this week. Decision to Disposition Date: May 14, 2018 Decision to Disposition Time: 12:37 Depart Departure Latest Vital Signs Vital Signs Date Time Temp Pulse Resp B/P (MAP) Pulse Ox O2 Delivery O2 Flow Rate FiO2 05/14/18 10:30 79 99 05/14/18 10:00 125/77 (93) 05/14/18 07:27 99.6 16 Room Air Impression: Primary Impression: Retained products of conception Condition: Improved Disposition: HOME OR SELF-CARE Referrals: SHAAN WHITAKER MD (PCP) Call tomorrow to schedule follow-up appointment within 48 hours for reevaluation of retained products of conception New Scripts Oxycodone Hcl/Acetaminophen (PERCOCET 5-325 MG TABLET) 1 Each Tablet 1 EACH PO Q4H for PAIN, #20 TAB 0 Refills Prov: DELFINA LIM MD 05/14/18 Amoxicillin/Pot Clav 875-125 Mg Tab (AUGMENTIN 875-125 TABLET) 1 Each Tablet 1 TAB PO Q12H, #20 TAB 0 Refills Prov: DELFINA LIM MD 05/14/18 Patient Instructions: Abdominal Pain (ED) Additional Instructions: Call Dr. Whitaker tomorrow to let her know that you were seen in the emergency department with possible retained products of conception and that you were told to make a follow-up appointment with her as soon as possible. Return to the ER if you develop fever at anytime or if your abdominal pain worsens DELFINA LIM MD May 14, 2018 07:24
[2018-05-14 07:52] LABS: PLATELET COUNT, AUTOMATED 178 K/uL (150-450)
[2018-05-14] MEDS ORDERED: ONDANSETRON 4 MG/2 ML VIAL IVP ONE (07:55)
[2018-05-14] MEDS ORDERED: NS(*) 0.9% 1000 ML BAG 1,000 ML IV ONE (07:55)
[2018-05-14] MEDS ORDERED: MORPHINE 4 MG/ML SDV IVP ONE (07:55)
[2018-05-14 10:00] VITALS: BP 125/77
--- NOTE | 2018-05-14 10:57 | RADIOLOGY IMAGING REPORT ---
FACILITY: [facility] - [place] PATIENT NAME: Parul Groves : 1980 MR: [id number] V: [id number] EXAM DATE: ORDERING PHYSICIAN: DELFINA LIM TECHNOLOGIST: Location: [facility] - [place] Patient: Parul Groves : 1980 Visit/Account:[id number] Date of Sevice: 05/14/2018 EXAMINATION: Transabdominal and transvaginal pelvic ultrasound with duplex Doppler evaluation HISTORY: Vaginal bleeding x10 days. Delivered 05/04/2018; COMPARISON: None. FINDINGS: Uterus: 15 cm length x 10 cm transverse x 7.5 cm AP. Myometrium: Negative. Endometrium: Fluid and debris is present within the endometrial cavity. There does appear to be some minor thickening along the anterior and right lateral endometrium with some minimal vascularity. It i s unclear whether this represents retained products but would be a differential consideration., . Cervix: Negative. Ovaries: Right ovary 2.9 x 2 x 3.4 cm, no mass or cyst. Left ovary 4.3 x 3.8 x 2.1 cm, no mass or cy st. Blood flow is documented in each ovary by Doppler ultrasound. Free pelvic fluid: None. Pelvic vessels: Normal Bladder: Empty IMPRESSION: 1. Fluid and debris in the endometrial cavity. There appears to be some residual endometrial irregula rity and thickening along the anterior and right lateral aspect of the endometrial cavity although wi th minimal vascularity, findings may be indicative of retained products. 2. No adnexal masses. Report Dictated By: Giuliana Poon MD at 05/14/2018 10:46 AM Report E-Signed By: Giuliana Poon MD at 05/14/2018 10:53 AM WSN:[id number]
[2018-05-14] MEDS ORDERED: KETOROLAC 15 MG/ML VIAL IVP ONE (11:20)
[2018-05-14] MEDS ORDERED: AMOX-559 PO (11:33)
[2018-05-14] MEDS ORDERED: OXYC-865 PO (11:33)
[2018-05-14] MEDS ORDERED: AMOX/CLAV 875 MG TAB PO ONE (11:35)
== END 2018-05-14 12:05 | disposition home or self-care (01) ==
LOC: ER 07:46
DX: O72.2 Delayed and secondary postpartum hemorrhage (principal)
CPT/HCPCS: 76830; 76856; 81001; 83690; 84702; 84703; 85025; 86677; 96361; 96374; 96375; 99284; J1885; J2270; J2405; J7030; 82040; 82247; 82310; 82374; 82435; 82565; 82947; 84075; 84132; 84155; 84295; 84450; 84460; 84520